=== PATIENT | male | born 1980 | race African-American/Black ===

== ENCOUNTER 2017-06-09 17:53 | Emergency (ER) | payer MEDICAID ==
[~2017-06-09] VITALS: Ht 170.2 cm; Wt 74.8 kg
[2017-06-09 17:58] VITALS: BP 128/65; Ht 170.2 cm; Wt 74.8 kg
== END 2017-06-09 19:40 | disposition other institution (70) ==
LOC: ED 17:53
DX: S01.81XA Laceration without foreign body of other part of head, initial encounter (principal); W50.0XXA Accidental hit or strike by another person, initial encounter; Y93.89 Activity, other specified; Y99.8 Other external cause status; Y92.89 Other specified places as the place of occurrence of the external cause
CPT/HCPCS: 90715; J2001

== ENCOUNTER 2017-06-09 17:53 | Emergency (ER) | payer OTHER | END 2017-06-09 19:40 | disposition other institution (70) | LOC: ED 17:53 | DX: Z02.89 Encounter for other administrative examinations (principal) ==

== ENCOUNTER 2017-08-19 17:21 | Emergency (ER) | payer SELFPAY ==
[~2017-08-19] VITALS: Ht 177.8 cm; Wt 72.6 kg
[2017-08-19 17:24] VITALS: BP 103/68; Ht 177.8 cm; Wt 72.6 kg
[2017-08-19 17:53] LABS: BASOPHIL % 0.6 % (0-2); PLATELET COUNT 355 x10^3mcL (130-400); RED CELL DISTRIBUTION WIDTH 13.4 % (11.5-14.5)
[2017-08-19 18:05] LABS: CALCIUM 8.2 mg/dL (8.5-10.1); CARBON DIOXIDE 25.2 mmol/L (21-32); CHLORIDE SERUM 110 mmol/L (98-107); CREATININE SERUM 0.8 mg/dL (0.7-1.3); GFR1 > 60 mL/min; GLUCOSE SERUM 101 mg/dL (74-106); POTASSIUM SERUM 3.6 mmol/L (3.5-5.1); SODIUM SERUM 142 mmol/L (136-145)
[2017-08-19 18:09] LABS: ALBUMIN 3.9 g/dL (3.4-5.0); ALKALINE PHOSPHATASE 72 U/L (46-116); ALT/SGPT 21 U/L (16-63); AST/SGOT 18 U/L (15-37); BILIRUBIN TOTAL 0.2 mg/dL (0.20-1.00); LIPASE 107 IU/L (73-393)
== END 2017-08-19 20:40 | disposition home or self-care (01) ==
LOC: ED 17:21
PROVIDERS: Emergency Medicine
DX: F10.129 Alcohol abuse with intoxication, unspecified (principal)
CPT/HCPCS: G0480; J2405; J3411; J3475; J3490; J7030

== ENCOUNTER 2017-08-20 00:01 | Emergency (ER) | payer SELFPAY ==
[~2017-08-20] VITALS: Ht 170.2 cm; Wt 74.8 kg
[2017-08-20 00:08] VITALS: BP 129/75; Ht 170.2 cm; Wt 74.8 kg
[2017-08-20 00:51] LABS: BASOPHIL % 0.7 % (0-2); PLATELET COUNT 390 x10^3mcL (130-400)
[2017-08-20 00:52] LABS: CALCIUM 8.3 mg/dL (8.5-10.1); CARBON DIOXIDE 26.5 mmol/L (21-32); CHLORIDE SERUM 111 mmol/L (98-107); CREATININE SERUM 0.8 mg/dL (0.7-1.3); GFR1 > 60 mL/min; GLUCOSE SERUM 134 mg/dL (74-106); POTASSIUM SERUM 3.4 mmol/L (3.5-5.1); SODIUM SERUM 143 mmol/L (136-145)
[2017-08-20 00:57] LABS: ALKALINE PHOSPHATASE 77 U/L (46-116); ALT/SGPT 24 U/L (16-63); AST/SGOT 21 U/L (15-37); BILIRUBIN TOTAL 0.2 mg/dL (0.20-1.00); TOTAL PROTEIN, SERUM 7.2 g/dL (6.4-8.2)
== END 2017-08-20 02:47 | disposition left against medical advice (07) ==
LOC: ED 00:01
PROVIDERS: Emergency Medicine
DX: R07.89 Other chest pain (principal)
CPT/HCPCS: 36415; 83880; 85378

== ENCOUNTER 2017-09-09 21:05 | Emergency (ER) | payer SELFPAY ==
[~2017-09-09] VITALS: Ht 170.2 cm; Wt 64.0 kg
[2017-09-09 21:27] VITALS: BP 159/89; Ht 170.2 cm; Wt 64.0 kg
== END 2017-09-09 22:00 | disposition left against medical advice (07) ==
LOC: ED 21:05
DX: Z53.21 Procedure and treatment not carried out due to patient leaving prior to being seen by health care provider (principal)